=== PATIENT | female | born 1980 | race Caucasian/White ===

== ENCOUNTER 2023-11-27 06:52 | Day surgery (SDC) | payer OTHER ==
[~2023-11-27] VITALS: Ht 162.6 cm; Wt 92.5 kg
[2023-11-27] MEDS ORDERED: AMPICILLIN SODIUM 1 GM in NS 50 ML IV ONE (07:00)
[2023-11-27 07:30] LABS: HCG,QUAL RESULT NEGATIVE (NEGATIVE)
[2023-11-27] MEDS ORDERED: MIDAZOLAM HCL 5 MG/5 ML VIAL ONE (08:04)
[2023-11-27] MEDS ORDERED: MEPERIDINE 100 MG INJ. 100 MG/ML VIAL ONE (08:04)
[2023-11-27] MEDS ORDERED: BENZOCAINE 20% 0.5mL UD SPRAY MM ONE (09:25)
[2023-11-27 09:36] VITALS: O2SAT 97
[2023-11-27] MEDS: GENTAMICIN SULFATE 80 MG/ 2ML VIAL IV ONE (10:38)
[2023-11-27 12:16] VITALS: BP_SYST 140; PULSE 63; RESP 18
== END 2023-11-27 11:34 | disposition home or self-care (01) ==
LOC: SDS 06:52 → SMU 06:56 → SDS 11:34
PROVIDERS: ATTEND Internal Medicine
DX: R19.4 Change in bowel habit (principal); K29.50 Unspecified chronic gastritis without bleeding; K31.89 Other diseases of stomach and duodenum; B96.81 Helicobacter pylori [H. pylori] as the cause of diseases classified elsewhere; K63.5 Polyp of colon; K62.1 Rectal polyp; I13.2 Hypertensive heart and chronic kidney disease with heart failure and with stage 5 chronic kidney disease, or end stage renal disease; N18.6 End stage renal disease; I50.22 Chronic systolic (congestive) heart failure; K44.9 Diaphragmatic hernia without obstruction or gangrene; K64.8 Other hemorrhoids; Z87.891 Personal history of nicotine dependence; Z99.2 Dependence on renal dialysis; Z79.899 Other long term (current) drug therapy
CPT/HCPCS: 45385; 45380; 43239; 84703; 88305; 88312; 88313; 99152; G0378; J0290; J1580; J2250; J2175